=== PATIENT | female | born 1955 ===

== ENCOUNTER → 2018-04-12 14:58 | Outpatient (REF) | payer OTHER, SELFPAY | LOC: LAB 14:58 | PROVIDERS: Visit Provider Dermatology MOHS-Micrographic Surgery | DX: T81.40XA Infection following a procedure, unspecified, initial encounter (principal); Z48.817 Encounter for surgical aftercare following surgery on the skin and subcutaneous tissue | CPT/HCPCS: 87070; 87075; 87205 ==